=== PATIENT | male | born 1970 | race American Indian/Alaskan Native ===

== ENCOUNTER 2016-11-30 17:32 | Emergency (ER) | payer BC, MEDICAID ==
[2016-11-30 17:33] VITALS: BMI 34.1
[2016-11-30] MEDS ORDERED: Morphine 4 MG/ML VIAL ONE (17:51)
[2016-11-30 17:55] LABS: BASO # 0.1 K/uL (0.0-0.2); BASO % 0.4 % (0.0-2.0); EOS % 0.1 % (0.0-4.0); HEMATOCRIT 44.3 % (35.0-51.0); LYMPH # 1.3 K/uL (1.0-4.3); MEAN CELL VOLUME 95.2 fL (80.0-94.0); MEAN CORPUSCULAR HEMOGLOBIN 32.1 pg (27.0-31.0); MEAN CORPUSCULAR HGB CONC 33.8 g/dL (33.0-37.0); MEAN PLATELET VOLUME 7.8 fL (7.2-11.7); MONO # 0.6 K/uL (0.0-0.8); MONO % 4.7 % (0.0-10.0); RED CELL DISTRIBUTION WIDTH 13.5 % (11.5-14.5)
--- NOTE | 2016-11-30 17:55 | C.PDOC ---
History Of Present Illness Patient presents to ED c/o left sided testicular pain, initially began at 8-9am and then improved, then began to worsen approx 1 hour ago. Patient denies falls /injuries, fever, dysuria/hematuria, abdominal pain, nausea/vomiting/diarrhea. Patient has no history of testicular problems/torsion. He also denies concern for STDs or recent unprotected sex. Time Seen by Provider: 11/30/16 17:41 Chief Complaint (Nursing): Male Genitourinary History Per: Patient History/Exam Limitations: no limitations Onset/Duration Of Symptoms: Hrs (8-9am) Current Symptoms Are (Timing): Worse (x 1 hour) Severity: Moderate Quality Of Discomfort: "Pain" Past Medical History Reviewed: Historical Data, Nursing Documentation, Vital Signs Vital Signs: Last Vital Signs Temp 98.3 F 11/30/16 17:45 Pulse 78 11/30/16 17:45 Resp 20 11/30/16 17:45 BP 149/81 11/30/16 17:45 Pulse Ox 97 11/30/16 18:39 - Medical History PMH: No Chronic Diseases Surgical History: Back Surgery (l4 l5) Family History: States: No Known Family Hx - Social History Hx Tobacco Use: No Hx Alcohol Use: Yes Hx Substance Use: No - Immunization History Hx Tetanus Toxoid Vaccination: Yes Hx Influenza Vaccination: Yes Hx Pneumococcal Vaccination: Yes Review Of Systems Except As Marked, All Systems Reviewed And Found Negative. Constitutional: Negative for: Fever, Chills Cardiovascular: Negative for: Chest Pain Respiratory: Negative for: Shortness of Breath Gastrointestinal: Negative for: Nausea, Vomiting, Abdominal Pain, Diarrhea Genitourinary: Positive for: Other (left testicular pain) Skin: Negative for: Rash Physical Exam - Physical Exam Appears: Non-toxic, In Acute Distress (in moderate pain) Oral Mucosa: Moist Cardiovascular: Rhythm Regular Respiratory: Normal Breath Sounds, No Rales, No Rhonchi, No Wheezing Gastrointestinal/Abdominal: Normal Exam, Bowel Sounds, Soft, No Tenderness Male Genital: Testicular Tenderness (left testicular TTP), No Inguinal Tenderness, No Inguinal Swelling, Other (mild swelling left testicular, firmer to touch than right testicle, no rashes ) Neurological/Psych: Oriented x3 ED Course And Treatment - Laboratory Results Result Diagrams: 11/30/16 17:51 11/30/16 17:51 O2 Sat by Pulse Oximetry: 97 (RA) Pulse Ox Interpretation: Normal - CT Scan/US US - Testicular Other Rad Studies (CT/US): Read By Radiologist, Radiology Report Reviewed CT/US Interpretation: EXAM: US Scrotum. CLINICAL HISTORY: 46 years old, male ; Pain; Scrotum pain; Additional info: Testicular pain R/O torsion. TECHNIQUE: Real-time ultrasound of the scrotum with color Doppler and image documentation. EXAM DATE/TIME: Exam ordered 11/30/2016 5:42 PM. COMPARISON: No relevant prior studies available. FINDINGS: Right testicle: The right testicle measures 4 x 2.2 x 3.6 cm the echotexture is homogeneous. No. torsion. Left testicle: The left Teste measures 4.1 x 2.7 x 2.8 cm.. The echotexture is homogeneous .The left. Teste is a hypervascular with respect to the right. Epididymides: The right epididymal head measures 1.2 x 1 x 0.7 cm. The left epididymal head. measures 1.9 cm in greatest diameter. The left epididymal head is hypervascular. Scrotum: There is a small right hydrocele There is a small to moderate sized left hydrocele. The. echotexture of the testes is symmetric. Other findings: There is a moderate to large left varicocele. There is a small right varicocele. IMPRESSION: 1. Left epididymal orchitis with a small to moderate left hydrocele. 2. Moderate left varicocele. 3. Small right varicocele. Thank you for allowing us to participate in the care of your patient. Dictated and Authenticated by: Mojgan Ge MD. 11/30/2016 6:36 PM Eastern Time ([place] & [place]) Progress Note: Blood work, UA, testicular US ordered and reviewed. Patient given IV NS bolus, IV morphine for pain. Left testicle manipulated by me, but patient unable to tolerate- pending US. Disposition Counseled Patient/Family Regarding: Studies Performed, Diagnosis, Need For Followup, Rx Given - Disposition Referrals: Deandre Crump MD [Staff Provider] - Will Valdes MD [Staff Provider] - Disposition Time: 19:00 Condition: STABLE Additional Instructions: FOLLOW UP WITH YOUR DOCTOR IN 1-2 DAYS, AND WITH UROLOGY WITHIN 1 WEEK USE ANTIBIOTICS UNTIL FINISHED RETURN TO ER IMMEDIATELY IF SYMPTOMS WORSEN Prescriptions: Acetaminophen with Codeine [Tylenol with Codeine #3 Tablet] 1 each PO Q6 PRN # 12 tablet PRN Reason: pain levoFLOXacin [Levaquin] 500 mg PO DAILY #10 tab Instructions: Epididymo-orchitis (ED) Print Language: AZERBAIJANI - POA Present On Arrival: None - Clinical Impression Clinical Impression: Epididymitis, Orchitis
[2016-11-30 18:02] LABS: CHLORIDE 101 mmol/L (98-107); POTASSIUM 4.1 mmol/L (3.6-5.2); SODIUM 138 mmol/L (132-148)
[2016-11-30 18:04] LABS: GFR AFRICAN-AMERICAN > 60
[2016-11-30 18:05] LABS: ALB/GLOB RATIO 1.1 (1.0-2.1); ALKALINE PHOSPHATASE 143 U/L (38-126); ALT/SGPT 49 U/L (21-72); AST/SGOT 46 U/L (17-59); BILIRUBIN,TOTAL 0.9 mg/dL (0.2-1.3); BLOOD UREA NITROGEN 13 mg/dL (9-20); CALCIUM 9.1 mg/dl (8.6-10.4); CARBON DIOXIDE 26 mmol/L (22-30); GLUCOSE,RANDOM 135 mg/dL (75-110); TOTAL PROTEIN 8.6 g/dL (6.3-8.3)
[2016-11-30 19:08] LABS: RBC URINE 4 /hpf (0-3); URINE BILIRUBIN NEGATIVE (NEGATIVE); URINE BLOOD 1+ (NEGATIVE); URINE COLOR Yellow (YELLOW); URINE GLUCOSE (UA) NORMAL (Normal); URINE KETONE NEGATIVE (NEGATIVE); URINE LEUKOCYTE ESTERASE NEG Leu/uL (Negative); URINE PROTEIN NEGATIVE (NEGATIVE); URINE UROBILINOGEN NORMAL mg/dL (0.2-1.0); WBC URINE 1 /hpf (0-5)
[2016-11-30 19:25] VITALS: BP 120/70; PULSE 75; RESP 16; TEMP 97.9; O2SAT 96
--- NOTE | 2016-12-01 10:48 | US ---
HISTORY: testicular pain r/o torsion TECHNIQUE: Realtime sonography through the scrotum with color and doppler flow. COMPARISON: None Available. FINDINGS: RIGHT TESTICLE: Measures 4.0 x 2.2 x 3.5 cm. Normal echotexture and flow. RIGHT EPIDIDYMIS: Epididymal head measures 10 x 7 x 1 mm. Normal echotexture and appearance with normal flow. LEFT TESTICLE: Measures 4.0 x 2.6 x 2.8 cm. Normal echotexture and mild increased flow. LEFT EPIDIDYMIS: Measures 30 x 11 x 19 mm. The epididymis is enlarged and has heterogeneous echotexture with increased vascular flow. HYDROCELE: There is a moderate left hydrocele. No right hydrocele. VARICOCELE: None. OTHER FINDINGS: None. IMPRESSION: 1. Left epididymal orchitis. Moderate left hydrocele. 2. No evidence for testicular mass or torsion. A preliminary report was provided by [facility].
== END 2016-11-30 19:25 | disposition home or self-care (01) ==
LOC: C.ER 17:32
DX: N45.3 Epididymo-orchitis (principal)
CPT/HCPCS: 76870; 80053; 81001; 85025; 85610; 85730; 86850; 86900; 87086; 96374; 99285; J2270

== ENCOUNTER 2017-05-11 10:56 | Emergency (ER) | payer BC, MEDICAID ==
[2017-05-11 10:56] VITALS: BMI 34.1
[2017-05-11 10:59] VITALS: TEMP 97.1; O2SAT 98
--- NOTE | 2017-05-11 11:38 | C.PDOC ---
History Of Present Illness 46 year old male presents to the ED for evaluation of left lower back pain which began yesterday. Patient states pain is localized and worse with movement , limited ful extension. Patient denies trauma. Reports history of prior L4/5 repair in 2012. Patient reports residual occasional right leg sciatica. No associated weakness/numbness. Patient notes associated weakness/numbness. No relief found with Aleve. Last dose was last night. L LOWER BACK PAIN SINCE YEST. LOCALIZED WORSE W MOVEMENT, LIMITED FULL EXTENSION. NO TRAUMA HO PRIOR L4/5 REPAIR 2012. PS W RESIDUAL OCC R LEG SCIATICA. NO ASSOC WEAKNESS/NUMB. NO RELIEF W ALEVE LAST DOSE LAST NIGHT EXAM MOD DIST NONTOXIC BACK LIMITED FULL EXTENT +SPASM W LOCAL TEND L LOWER BACK NO SPINAL TEND NEURO INTACT MDM PT DRIVING HOME. NSAIDS, LIDODERM, DEXAMETHASONE DC W PAIN RX. Time Seen by Provider: 05/11/17 11:28 Chief Complaint (Nursing): Back Pain History Per: Patient History/Exam Limitations: no limitations Onset/Duration Of Symptoms: Hrs Current Symptoms Are (Timing): Still Present Quality Of Discomfort: "Pain" Previous Symptoms: Back Pain Associated Symptoms: denies: Incontinence, New Weakness, New Numbness Additional History Per: Patient Past Medical History Reviewed: Historical Data, Nursing Documentation, Vital Signs Vital Signs: Last Vital Signs Temp 97.1 F L 05/11/17 10:59 Pulse 75 05/11/17 12:09 Resp 20 05/11/17 12:09 BP 130/70 05/11/17 12:09 Pulse Ox 98 05/11/17 12:09 - Medical History PMH: No Chronic Diseases Surgical History: Back Surgery (l4 l5) Family History: States: Unknown Family Hx - Social History Hx Tobacco Use: No Hx Alcohol Use: Yes Hx Substance Use: No - Immunization History Hx Tetanus Toxoid Vaccination: Yes Hx Influenza Vaccination: Yes Hx Pneumococcal Vaccination: Yes Physical Exam - Physical Exam Appears: Non-toxic, Other (in moderate distress ) Skin: Normal Color, Warm, Dry Neck: Supple Back: No Vertebral Tenderness, Muscle Spasm (with localized tenderness to left lower back ), Other (limited full extension) Extremity: Normal ROM, Capillary Refill (less than 2 seconds ) Neurological/Psych: Oriented x3, Normal Speech, Normal Cognition Gait: Steady ED Course And Treatment O2 Sat by Pulse Oximetry: 98 (on RA) Pulse Ox Interpretation: Normal Progress Note: Lidoderm TD, Decadron PO and Toradol IM administered. Medical Decision Making Medical Decision Making: PT DRIVING HOME. NSAIDS, LIDODERM, DEXAMETHASONE DC W PAIN RX. Disposition Counseled Patient/Family Regarding: Diagnosis, Need For Followup, Rx Given - Disposition Referrals: YOUR,PMD [Other] Disposition: HOME/ ROUTINE Disposition Time: 11:38 Condition: IMPROVED Prescriptions: Ibuprofen [Motrin Tab] 800 mg PO Q6 #30 tab Lidocaine 5% [Lidoderm] 1 ea TD PRN PRN #10 patch PRN Reason: Pain, Moderate (4-7) oxyCODONE/Acetaminophen [Percocet 5/325 mg Tab] 1 ea PO QID #8 tab Instructions: Back Pain (ED) Forms: [facility] (Telugu), Work Excuse - Clinical Impression Clinical Impression: Low back pain - Scribe Statement The provider has reviewed the documentation as recorded by the Scribe (Ya Oakley) Provider Attestation: All medical record entries made by the Scribe were at my direction and personally dictated by me. I have reviewed the chart and agree that the record accurately reflects my personal performance of the history, physical exam, medical decision making, and the department course for this patient. I have also personally directed, reviewed, and agree with the discharge instructions and disposition.
[2017-05-11] MEDS ORDERED: Lidocaine 5% Patch TD STA (11:39)
[2017-05-11] MEDS ORDERED: Lidocaine 5% Patch TD ONE (11:47)
[2017-05-11 12:09] VITALS: BP 130/70; PULSE 75; RESP 20
== END 2017-05-11 12:09 | disposition home or self-care (01) ==
LOC: C.ER 10:56
DX: M54.5 Low back pain (principal)
CPT/HCPCS: 96372; 99283; J1885; J8540